=== PATIENT | male | born 1935 | race Caucasian/White ===

== ENCOUNTER 2020-01-21 08:00 | Emergency (ER) | payer MEDICARE ==
[2020-01-21 08:33] VITALS: BP 147/99
--- NOTE | 2020-01-21 09:30 | UC ---
Respiratory Complaint HPI - HPI Summary HPI Summary: cough x 2 weeks cough is productive, yellow / green sputum thinks he had the flu . chest congestion , pnd this morning felling bloated , has no appetite , palpitation denies any chest pain , no sob - History of Current Complaint Chief Complaint: UCGeneralIllness Stated Complaint: CHEST CONGESTION Time Seen by Provider: 01/21/20 08:35 Hx Obtained From: Patient Onset/Duration: Gradual Onset, Lasting Days - 1, Still Present Timing: Constant Severity Initially: Moderate Severity Currently: Moderate Pain Intensity: 0 Pain Scale Used: 0-10 Numeric Character: Cough: Nonproductive Aggravating Factors: Exertion, Deep Breaths Alleviating Factors: Nothing Associated Signs And Symptoms: Positive: URI, Nasal Congestion. Negative: Dyspnea, Fever, Chills, Pleuritic Chest Pain, Wheezing, Hemoptysis, Dizziness, Calf Pain, Calf Swelling - Allergies/Home Medications Allergies/Adverse Reactions: Allergies Allergy/AdvReac Type Severity Reaction Status Date / Time adhesive tape Allergy Itching Verified 01/21/20 08:20 Home Medications: Home Medications Apixaban* [Eliquis*] 5 mg PO BID 01/21/20 [History Confirmed 01/21/20] Furosemide TAB* [Lasix TAB*] 40 mg PO ONCE PRN 01/21/20 [History Confirmed 01/20] Garlic 1 tab PO DAILY 01/21/20 [History Confirmed 01/21/20] Gemfibrozil TAB* [Lopid TAB*] 600 mg PO BID 01/21/20 [History Confirmed ] Radha 1 tab PO DAILY 01/21/20 [History Confirmed 01/21/20] Lisinopril TAB* [Prinivil TAB*] 10 mg PO DAILY 01/21/20 [History Confirmed 01/20] Ubidecarenone [Coq10] 100 mg PO DAILY 01/21/20 [History Confirmed 01/21/20] dilTIAZem HCl [Diltiazem 24Hr ER (Cd)] 240 mg PO DAILY 01/21/20 [History Confirmed 01/21/20] PMH/Surg Hx/FS Hx/Imm Hx Endocrine History: Diabetes Cardiovascular History: Cardiac Disease, Hypertension Cancer History: Prostate Cancer - Surgical History Surgical History: Yes Surgery Procedure, Year, and Place: triple bypass 2006. cholecystectoy 2002. prostatectomy 1994 - Social History Alcohol Use: None Substance Use Type: None Smoking Status (MU): Never Smoked Tobacco Review of Systems All Other Systems Reviewed And Are Negative: Yes Constitutional: Positive: Fatigue. Negative: Fever, Chills Skin: Positive: Negative Eyes: Positive: Negative ENT: Positive: Nasal Discharge Respiratory: Positive: Cough Cardiovascular: Positive: Negative Is Patient Immunocompromised?: No Physical Exam Triage Information Reviewed: Yes Appearance: Ill-Appearing, Pain Distress Vital Signs: Initial Vital Signs Temp 98.7 F 01/21/20 08:23 Pulse 137 01/21/20 08:23 Resp 15 01/21/20 08:23 BP 147/99 01/21/20 08:23 Pulse Ox 96 01/21/20 08:23 Vital Signs Reviewed: Yes Eye Exam: Normal Eyes: Positive: Conjunctiva Clear ENT Exam: Normal ENT: Positive: Normal ENT inspection, Hearing grossly normal Neck: Positive: Supple, Nontender, No Lymphadenopathy Respiratory: Positive: Chest non-tender, Crackles Cardiovascular: Positive: Tachycardia, Other: - irrigularly / irrigular / afib Abdomen Description: Positive: Nontender, Distended. Negative: Guarding Bowel Sounds: Positive: Present Diagnostics - EKG Cardiac Rate: Tachycardia Cardiac Rhythm: AFib: New Ectopy: None ST Segment: Normal Respiratory Course/Dx - Differential Dx/Diagnosis Provider Diagnosis: Afib Discharge ED - Sign-Out/Discharge Documenting (check all that apply): Patient Departure All imaging exams completed and their final reports reviewed: No Studies - Discharge Plan Condition: Stable Disposition: HOME Patient Education Materials: A-fib (Atrial Fibrillation) (ED) Referrals: Sergio Peacock MD [Primary Care Provider] - Additional Instructions: will have the pt. go to [facility] ED for evaluation and tx of Afib pt. is refusing ambulance transfer and signing AMA - Billing Disposition and Condition Condition: STABLE Disposition: Home
== END 2020-01-21 09:04 | disposition home or self-care (01) ==
LOC: UCCORT 08:00
DX: I48.91 Unspecified atrial fibrillation (principal); I10 Essential (primary) hypertension; E11.9 Type 2 diabetes mellitus without complications; Z79.01 Long term (current) use of anticoagulants; Z79.899 Other long term (current) drug therapy; Z85.46 Personal history of malignant neoplasm of prostate
CPT/HCPCS: 93005; 99212; G0463